=== PATIENT | female | born 1995 | race Caucasian/White ===

== ENCOUNTER 2020-07-10 22:41 | Emergency (ER) | payer MEDICAID, SELFPAY ==
[2020-07-10 23:11] VITALS: BP 112/75; PULSE 94; RESP 16; TEMP 36.8; O2SAT 100; BMI 19.2
[2020-07-11] MEDS: Rabies Immune Globulin/PF 1,500 UNIT/5 ML VIAL 1182 UNIT IM (00:08)
[2020-07-11] MEDS: Rabies Vaccine (PCEC)/PF 1 ML VIAL IM (00:09)
--- NOTE | 2020-07-11 00:21 | ED.ANIMALBIT ---
HPI - Animal Bite General Chief Complaint: Animal Bite Stated Complaint: Cat bite Time Seen by Provider: 07/10/20 23:16 Source: patient Mode of arrival: ambulatory Limitations: no limitations History of Present Illness HPI narrative: 24-year-old female presents with a stray cat bite the left hand. complaint: animal bite Onset (ago): hour(s) (Within the hour arrival) Animal: cat Description of animal: unknown animal Mechanism: bite Location - Extremities: left: hand Severity scale (1-10): 1 Context: provoked (Patient attempted to touch the animal) Associated symptoms: none Treatments prior to arrival: irrigation Related Data Patient tetanus UTD: Yes Previous Rx's Medication Instructions Recorded amoxicillin-pot clavulanate 1 tab PO Q12H 10 Days #20 tab 07/11/20 [Augmentin] Allergies Allergy/AdvReac Type Severity Reaction Status Date / Time No Known Allergies Allergy Unverified 12/07/19 18:21 Review of Systems Review of Systems: Constitutional: No Fever, No Chills ENT/Mouth: No Ear Pain, No Hoarseness, No sore throat Eyes: No Eye Pain, No Swelling, No Redness, No Foreign Body Cardiovascular: No Chest Pain, No SOB Respiratory: No Cough, No Dyspnea Gastrointestinal: No Nausea, No Vomiting, No Diarrhea, No abdominal Pain Genitourinary: No Dysuria, No Hematuria Musculoskeletal: No joint pain, No Myalgias, No Joint Swelling Skin: Superficial scratch pulido to the left thumb, No Skin lacerations, No rash Neuro: No Weakness, No Numbness, No Paresthesias, No Loss of Consciousness, No Dizziness, No Headache Psych: No Anxiety/Panic, No Depression Heme/Lymph: no easy bruising, no Lymphadenopathy Endocrine: No Polyuria, No Polydipsia Yes all other systems are reviewed and are negative [facility] Past Medical History Attestation statement: The following information was validated with the patient. Source: old records reviewed Medical History (Updated 07/11/20 @ 01:28 by Mariah Adams NP) No known health problems Social History Social History Alcohol intake: never Smoked in Last 30 Days: No Advance Directives: No Advance Directives Information Provided: Yes Physical Exam Vital Signs: Vital Signs: Last Vital Signs Temp 98.2 F 07/10/20 23:11 Pulse 94 07/10/20 23:11 Resp 16 07/10/20 23:11 BP 112/75 07/10/20 23:11 Pulse Ox 100 07/10/20 23:11 Body Mass Index 19.2 Appearance: Alert. Oriented X3. No acute distress. Eyes: Pupils equal, round and reactive to light. ENT: Pharynx normal. Neck: Normal inspection. Neck supple. CVS: Normal heart rate and rhythm. Pulses normal. Respiratory: No respiratory distress. Breath sounds normal. Abdomen: Soft and nontender. Skin: Superficial scratch to left thumb, Skin warm and dry. Normal skin color. Normal skin turgor. Extremities: No lower extremity edema. Neuro: No motor deficit. No sensory deficit. Course Course Course Narrative: 24-year-old female presents with a stray cat bite to the left hand. Does have superficial scratch pulido, will treat for rabies with immunoglobulin and vaccine. Detailed description regarding course of care, patient agrees to plan. She does understand that she must return for subsequent injections. Patient tolerated the injections well. Patient verbalized understanding of and agrees to plan of care discharge home. MDM - Animal Bite Differential Diagnosis Differential diagnosis: Likely bite by animal and cat bite Medical Records Attestation: I reviewed the patient's medical records. Discharge Plan Discharge Clinical Impression: Rabies contact Cat bite Qualifiers: Encounter type: initial encounter Qualified Code(s): W55.01XA - Bitten by cat, initial encounter Patient Disposition: Home, Self-Care Instructions: Rabies Vaccine (By injection), Rabies Immune Globulin (By injection), Animal Bite (ED), Rabies (ED) Additional Instructions: You were evaluated for a bite from a stray cat. Please follow-up with 2nd and 3rd doses of rabies vaccine. Take Augmentin twice a day as directed. Complete the entire course of this medication. Thank you for choosing this emergency department for evaluation. Please follow-up with primary care physician as needed. Return to the emergency department for any new, concerning, or worsening symptoms. Prescriptions: New amoxicillin-pot clavulanate [Augmentin] 875-125 mg tablet 1 tab PO Q12H 10 Days Qty: 20 RF: 0 Interventions: ED Discharge Assessment Last Done: 07/11/20 02:08 Discharge Date/Time: 07/11/20 01:35
[2020-07-11] MEDS: Amoxicillin/Potassium Clav 875 MG TABLET PO (01:12)
== END 2020-07-11 01:35 | disposition home or self-care (01) ==
PROVIDERS: Emergency Provider Emergency Medicine Emergency Medical Services; PCP Nurse Practitioner Family
DX: S60.572A Other superficial bite of hand of left hand, initial encounter (principal); W55.01XA Bitten by cat, initial encounter; Z20.3 Contact with and (suspected) exposure to rabies; Y93.89 Activity, other specified; Y92.017 Garden or yard in single-family (private) house as the place of occurrence of the external cause; Y99.9 Unspecified external cause status
CPT/HCPCS: 90375; 90471; 90675; 96372; 99284

== ENCOUNTER 2020-07-14 10:04 | Outpatient (REF) | payer MEDICAID, SELFPAY | END 2020-07-14 10:05 | disposition home or self-care (01) | LOC: HO.MDS 10:04 | PROVIDERS: PCP Nurse Practitioner Family; Visit Provider Nurse Practitioner Family | DX: Z29.14 Encounter for prophylactic rabies immune globulin (principal); S60.572D Other superficial bite of hand of left hand, subsequent encounter; W55.01XD Bitten by cat, subsequent encounter; Z20.3 Contact with and (suspected) exposure to rabies | CPT/HCPCS: 90675; 96372 ==

== ENCOUNTER 2020-07-18 09:02 | Outpatient (REF) | payer MEDICAID, SELFPAY | END 2020-07-18 09:03 | disposition home or self-care (01) | LOC: HO.MDS 09:02 | PROVIDERS: PCP Nurse Practitioner Family; Visit Provider Nurse Practitioner Family | DX: Z29.14 Encounter for prophylactic rabies immune globulin (principal); S60.572D Other superficial bite of hand of left hand, subsequent encounter; W55.01XD Bitten by cat, subsequent encounter; Z20.3 Contact with and (suspected) exposure to rabies | CPT/HCPCS: 90471; 90675 ==

== ENCOUNTER 2020-07-25 08:58 | Outpatient (REF) | payer MEDICAID, SELFPAY | END 2020-07-25 08:59 | disposition home or self-care (01) | LOC: HO.MDS 08:58 | PROVIDERS: PCP Nurse Practitioner Family; Visit Provider Nurse Practitioner Family | DX: Z29.14 Encounter for prophylactic rabies immune globulin (principal); S60.572D Other superficial bite of hand of left hand, subsequent encounter; W55.01XD Bitten by cat, subsequent encounter; Z20.3 Contact with and (suspected) exposure to rabies | CPT/HCPCS: 90675; 96372 ==

== ENCOUNTER → 2021-11-18 10:50 | Outpatient (BNVA) | payer SELFPAY | PROVIDERS: PCP Nurse Practitioner Family | DX: Z02.83 Encounter for blood-alcohol and blood-drug test (principal) ==

== ENCOUNTER 2023-09-01 23:15 | Emergency (ER) | payer OTHER, SELFPAY ==
[2023-09-01 23:18] VITALS: BP 127/66; PULSE 75; RESP 17; TEMP 36.3; O2SAT 98; BMI 19.2
[2023-09-02 03:16] VITALS: BP 120/62; PULSE 63; RESP 16; TEMP 36.9; O2SAT 97
[2023-09-02 05:30] VITALS: BP 120/58; PULSE 70; RESP 16; TEMP 36.9; O2SAT 98
[2023-09-02 05:39] LABS: D Dimer High Sensitivity 167 NG/ML
--- NOTE | 2023-09-02 06:17 | ED.EXTPRO ---
HPI - Extremity Problem General Chief complaint: Extremity Problem Stated complaint: abd pain Time Seen by Provider: 09/02/23 03:19 Source: patient and family Mode of arrival: ambulatory History of Present Illness ED Provider: Dr Gómez HPI Narrative: 27-year-old female, recently found out that she is , denies any vaginal bleeding but states that she was ill last week and then this week noted that she had bilateral calf tenderness without any swelling, the right calf has improved but left calf still remains tender to palpation and she is concerned for possible DVT. Related Data Previous Rx's ?Medication ?Instructions ?Recorded amoxicillin 875 mg-potassium 1 tab PO Q12H 10 days #20 tabs 07/11/20 clavulanate 125 mg tablet (Augmentin) Allergies Allergy/AdvReac Type Severity Reaction Status Date / Time No Known Allergies Allergy Verified 09/01/23 23:20 Review of Systems Review of Systems: Pertinent positives and negatives as stated in HPI [facility] Past Medical History Source: nursing notes reviewed Medical History No known health problems Social History Social History Alcohol intake: never Advance Directives: No Advance Directives Information Provided: No Do you have a plan to hurt others: No Plan Physical Exam Vital Signs: Vital Signs: Last Vital Signs Temp 98.4 F 09/02/23 05:30 Pulse 70 09/02/23 05:30 Resp 16 09/02/23 05:30 BP 120/58 L 09/02/23 05:30 Pulse Ox 98 09/02/23 05:30 O2 Del Method Room Air 09/02/23 05:30 BMI result Body Mass Index 19.2 VITAL SIGNS: Reviewed. GENERAL: Well developed, well nourished, in no acute distress. HEAD: Normocephalic/atraumatic EYES: PERRLA, EOMI LUNGS: Normal breath sounds. No adventitious sounds or accessory muscle use. SpO2<98> CARDIOVASCULAR: Regular rate and rhythm without noted murmurs ABDOMEN: Soft, non-tender, non-distended with bowel sounds. MUSCULOSKELETAL: No tenderness, deformities, or effusions noted on gross inspection. EXTREMITIES: No cyanosis, clubbing or edema. BILATERAL LOWER EXTREMITY: There is no erythema/induration, no deformity noted, compartments are soft with neurovascular intact, sizes symmetrical SKIN: Inspection of the skin reveals no rashes NEUROLOGIC: Alert and oriented x 4. Strength and sensation to light touch were grossly intact x 4. Medical Decision Making Medical Decision Making [facility] Narrative: 27-year-old female with history and clinical presentation, very low clinical suspicion for DVT, no clinical findings to suggest thrombophlebitis, no evidence of venous varicosity and suspect residual musculoskeletal pain after recent illness. D-dimer -167, patient is otherwise discharged but instructed to return should she have any worsening of the calf discomfort and in the meantime will treat her with initially giving Tylenol and patient instructed to do the same. Differential Diagnosis Differential Diagnoses: The differential diagnosis associated with the presentation includes Please see the discussion above Admission/Observation Consideration of admission/observation: Escalation of care including admission/observation considered Please see the discussion above Lab Data [facility] Lab Attestation statement: I reviewed the patient's lab results. Please see the discussion above Labs: Lab Results 09/02/23 Range/Units 05:26 D-Dimer High Sensitivty 167 NG/ML Critical Care Time Critical Care Time Critical Care Time: Yes Total Critical Care Time: 30 Attestation: I personally attest to this time spent taking care of the patient. Discharge Plan Discharge Clinical Impression: Bilateral calf pain Patient Disposition: Home, Self-Care Instructions: Leg Cramps (ED) Additional Instructions: Recommend Tylenol as needed for pain control, continue to gently stretch, no indication at this time that you have a DVT. Do not hesitate to return to the emergency room should you experience any worsening of your symptoms. Prescriptions: No Action amoxicillin-pot clavulanate [Augmentin] 875-125 mg tablet 1 tab PO Q12H 10 Days Qty: 20 0RF Referrals: Radha Rivas NP [Primary Care Provider] - Print Language: German
[2023-09-02] MEDS: Acetaminophen 325 MG TABLET 975 MG PO (06:29)
[2023-09-02 06:33] VITALS: BP 120/58; PULSE 70; RESP 16; TEMP 36.9; O2SAT 98
== END 2023-09-02 06:35 | disposition home or self-care (01) ==
PROVIDERS: Emergency Provider Student in an Organized Health Care Education/Training Program; PCP Nurse Practitioner Family
DX: O99.891 Other specified diseases and conditions complicating pregnancy (principal); M79.662 Pain in left lower leg; M79.661 Pain in right lower leg; Z3A.00 Weeks of gestation of pregnancy not specified
CPT/HCPCS: 36415; 85379; 99283